=== PATIENT | male | born 1975 | race Hispanic/Latino ===

== ENCOUNTER 2021-08-26 14:19 | Outpatient (CLI) | payer BC ==
[2021-08-27 00:50] LABS: SARS-CoV-2 PCR by NAA Not Detected (NotDetected)
== END 2021-08-26 14:20 | disposition home or self-care (01) ==
LOC: CSHLAB 14:19
PROVIDERS: ATTEND Internal Medicine
DX: Z20.822 Contact with and (suspected) exposure to COVID-19 (principal)
CPT/HCPCS: U0003; U0005

== ENCOUNTER 2021-08-29 13:31 | Outpatient (CLI) | payer BC | END 2021-08-29 13:32 | disposition home or self-care (01) | LOC: CSHCT 13:31 | PROVIDERS: ATTEND Internal Medicine | DX: R91.1 Solitary pulmonary nodule (principal); R91.8 Other nonspecific abnormal finding of lung field; I89.8 Other specified noninfective disorders of lymphatic vessels and lymph nodes; D73.89 Other diseases of spleen | CPT/HCPCS: 71260; 94060; 94726; 94729; 94760 ==